=== PATIENT | male | born 1960 | race Two or more races ===

== ENCOUNTER 2019-03-04 13:16 | Emergency (ER) | payer OTHER ==
[2019-03-04] MEDS ORDERED: TDAP ADULT 0.5 ML INJ (BOOSTRIX) IM ONE (13:31)
--- NOTE | 2019-03-04 13:31 | EDPHY ---
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 His leather glove got caught in the blade and pulled his hand into the blade. He sustained a laceration to the thenar eminence of his left hand. This happened just prior to arrival. He has normal movement in his thumb and normal strength but does have some slight tingling to the tip of his thumb distal to the PIP. Severity: Severe Modifying factors: None REVIEW OF SYSTEMS: Constitutional: denies: chills, fever, recent illness, recent injury EENTM: denies: blurred vision, double vision, nose congestion Respiratory: denies: cough, shortness of breath Cardiac: denies: chest pain, irregular heart rate, lightheadedness, palpitations Gastrointestinal/Abdominal: denies: abdominal pain, diarrhea, nausea, vomiting, blood streaked stools Genitourinary: denies: dysuria, frequency, hematuria, pain Musculoskeletal: denies: joint pain, muscle pain Skin: See HPI Neurological: denies: headache, numbness, paresthesia, tingling, dizziness, weakness Hematologic/Lymphatic: denies: blood clots, easy bleeding, easy bruising Immunologic/allergic: denies: HIV/AIDS, transplant 10 systems reviewed and negative except as noted EXAM: GENERAL: Well-appearing, well-nourished and in no acute distress. HEAD: Atraumatic, normocephalic. EYES: Pupils equal round and reactive to light, extraocular movements intact, sclera anicteric, conjunctiva are normal. ENT: TMs normal, nares patent, oropharynx clear without exudates. Moist mucous membranes. NECK: Normal range of motion, supple without lymphadenopathy or JVD. LUNGS: Breath sounds clear to auscultation bilaterally and equal. No wheezes rales or rhonchi. HEART: Regular rate and rhythm without murmurs, rubs or gallops. ABDOMEN: Soft, nontender, normoactive bowel sounds. No guarding, no rebound. No masses appreciated. BACK: No CVA tenderness, no spinal tenderness, step-offs or deformities EXTREMITIES: The see diagram Normal range of motion, no pitting or edema. No clubbing or cyanosis. NEUROLOGICAL: Cranial nerves II through XII grossly intact. Normal speech, normal gait. 5/5 strength, normal movement in all extremities, normal sensation , normal reflexes PSYCH: Normal mood, normal affect. SKIN: See diagram Source: Patient Exam Limitations: No limitations - Personal History Current Tetanus Diphtheria and Acellular Pertussis (TDAP): No - Medical/Surgical History Hx Asthma: No Hx Chronic Respiratory Disease: No Hx Diabetes: No Hx Cardiac Disease: No Hx Renal Disease: No Hx Cirrhosis: No Hx Alcoholism: No Hx HIV/AIDS: No Hx Splenectomy or Spleen Trauma: No Other PMH: denies medical - Family History Significant Family History: No pertinent family hx - Social History Smoking Status: Never smoked Alcohol Use: Sober Constitutional: Initial Vital Signs Temperature (C) 36.8 C 03/04/19 13:23 Heart Rate 104 H 03/04/19 13:23 Respiratory Rate 20 03/04/19 13:23 Blood Pressure 162/116 H 03/04/19 13:23 O2 Sat (%) 95 03/04/19 13:23 O2 Delivery Mode Room Air Allergies/Adverse Reactions: No Known Allergies Allergy (Unverified 03/04/19 13:23) Home Medications: Medication Instructions Recorded Amoxicillin/Clavulanate Pot 875 mg PO BID #14 tab 03/04/19 [Augmentin 875Mg] Hydrocodone/APAP 5/325 [[place] 1 - 2 tab PO Q4H PRN #10 tab 03/04/19 5/325 (RX)] ED Images - Extremities Hands Front Left/Right: 1 - 4 cm laceration left thenar eminence, tendon visible and intact. Normal movement in all directions distally. Slight tingling to the very tip of his thumb but does feel like touch. No visible fracture. Medical Decision Making - Diagnostics Imaging: Discussed imaging studies w/ body recall instructor Radiologist Procedures: Procedure: Laceration repair. Verbal consent was obtained from the patient. The 4 cm left thumb laceration was anesthetized with 1% lidocaine with epi and bicarbonate locally infiltrated. The wound was irrigated copiously according to protocol, draped and explored to its base. It was approximately 2-3 mm deep. There was extensive [place] debris that was picked out and then irrigated again. He did have a partial laceration of the flexor pollicis longus tendon. He did maintain full strength and range of motion. The wound was repaired with 3 deep sutures 4.0 Vicryl and 20 superficial sutures 5.0 Prolene, interrupted. The wound repair was complex with multiple layer repair and margin revision. The procedure was performed by myself. A dressing was then placed with sterile gauze and bacitracin. ED Course/Re-evaluation: The patient does have a partial tendon injury of the flexor pollicis longus tendon on direct examination. It is mostly intact. It maintains good function. There was a lot of [place] debris removed manually by me and repeat irrigation was repeated several times. I then closed the wound and will start antibiotics. The patient will follow up with Hand surgery for the tendon injury and also possible nerve injury. He does have paresthesias just at the tip of his thumb. We discussed risk of infection. We discussed follow-up. His and co-worker were here translating for him. 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 Differential Diagnosis: Partial list of the Differential diagnosis considered include but were not limited to; left hand laceration, flexor tendon injury, nerve injury and although unlikely based on the history and physical exam, I also considered vascular injury fracture. I discussed these differential diagnoses and the plan with the patient as well as the usual and expected course. The patient understands that the diagnosis is provisional and that in medicine we are not always correct and that further workup is often warranted. Usual and customary warnings were given. All of the patient's questions were answered. The patient was instructed to return to the emergency department should the symptoms at all worsen or return, otherwise to followup with the physician as we discussed. - Data Points Medications Given: Discontinued Medications Amoxicillin/Clavulanate Potassium (Augmentin 875mg) 875 mg PO EDNOW ONE PRN Reason: Protocol Stop: 03/04/19 13:54 Last Admin: 03/04/19 14:51 Dose: 875 mg Diphtheria/Tetanus/Acell Pertussis (Boostrix) 0.5 ml IM .ONCE ONE Stop: 03/04/19 13:32 Last Admin: 03/04/19 13:35 Dose: 0.5 ml Departure - Departure Disposition: Home, Routine, Self-Care Clinical Impression: Hand laceration involving tendon Qualifiers: Encounter type: initial encounter Laterality: left Qualified Code(s): S61.412A - Laceration without foreign body of left hand, initial encounter; S66.922A - Laceration of unspecified muscle, fascia and tendon at wrist and hand level, left hand, initial encounter; S66.922A - Laceration of unspecified muscle, fascia and tendon at wrist and hand level, left hand, initial encounter Condition: Fair Instructions: Hydrocodone/Acetaminophen (By mouth), Amoxicillin/Clavulanate Potassium (By mouth), Laceration (ED), Tendon Laceration (ED) Additional Instructions: It is important that you follow up with a hand surgeon this week. When you call to make the appointment make sure that they no you were seen in the emergency department and have a flexor tendon injury Referrals: Julissa Mercer MD [Medical Doctor] - 2-3 days without fail Prescriptions: Amoxicillin/Clavulanate Pot [Augmentin 875Mg] 875 mg PO BID #14 tab Hydrocodone/APAP 5/325 [[place] 5/325 (RX)] 1 - 2 tab PO Q4H PRN #10 tab PRN Reason: Pain, Moderate
[2019-03-04] MEDS ORDERED: AMOXICILLIN/CLAVULANATE POT 875/125 MG TAB PO ONE (13:53)
[2019-03-04 14:56] VITALS: BP 139/96
== END 2019-03-04 15:13 | disposition home or self-care (01) ==
LOC: CED 13:16
PROC: 0HQGXZZ Repair Left Hand Skin, External Approach (ICD-10-PCS; principal; 2019-03-04)
DX: S61.022A Laceration with foreign body of left thumb without damage to nail, initial encounter (principal); S66.822A Laceration of other specified muscles, fascia and tendons at wrist and hand level, left hand, initial encounter; W31.2XXA Contact with powered woodworking and forming machines, initial encounter; Z23 Encounter for immunization; Y93.H3 Activity, building and construction; Y99.0 Civilian activity done for income or pay
CPT/HCPCS: 73130-PO; 90471-ER; 99284-ER; L3807-ER